=== PATIENT | female | born 1965 | race Caucasian/White ===

== ENCOUNTER 2022-08-17 09:20 | Day surgery (SDC) | payer OTHER, SELFPAY ==
[2022-08-11 14:32] VITALS: BMI 22.8
--- NOTE | 2022-08-16 12:08 | HO.ANESPROP2 ---
Documented by User: Pari Torres NP 08/16/22 12:08 HPI - Anesthesia Eval Consult details Narrative: 56yo F for Colonoscopy PMFSH Active Problems Active Problems: All Active Problems (Updated 01/09/22 @ 09:14 by Antonio Aldrich MD) Nevus (Acute) Paronychia of great toe, left (Acute) Family History Family History Father Stomach cancer Paternal Aunt Colon cancer Mother Breast cancer Surgical History Surgical History (Updated 07/03/22 @ 13:14 by RENAE Dudley) H/O colonoscopy Social History Social History Alcohol intake: current Alcohol intake frequency: 0-2 drinks per day Alcohol type: beer and wine Patient Tobacco Use Status: Never used Tobacco Use of substances other than those prescribed or required for medical reasons: No Advance Directives: No Advance Directives Information Provided: Yes Meds Allergies Allergy/AdvReac Type Severity Reaction Status Date / Time No Known Allergies Allergy Verified 07/03/22 13:11 Exam Exam Date and Time: August 16, 2022 1208 Height,Weight and Vital Signs: Height 5 ft 4 in Weight 60.399 kg Assessment and Plan Assessment Anesthesia Assessment: Chart Reviewed Documented by User: Montse Callejas MD 08/17/22 10:37 PMFSH Past Medical History Functional capacity: independent ambulation Patient : No Family History Family History Father Stomach cancer Paternal Aunt Colon cancer Mother Breast cancer Family history of problems with anesthesia: No Surgical History Surgical History (Updated 07/03/22 @ 13:14 by RENAE Dudley) H/O colonoscopy History of Problems with Anesthesia: No Social History Social History Alcohol intake: current Alcohol intake frequency: 0-2 drinks per day Alcohol type: beer and wine Patient Tobacco Use Status: Never used Tobacco Use of substances other than those prescribed or required for medical reasons: No Advance Directives: No Advance Directives Information Provided: Yes Meds Allergies Allergy/AdvReac Type Severity Reaction Status Date / Time No Known Allergies Allergy Verified 07/03/22 13:11 Exam Airway Mallampati Class: II TM Dist: >3cm Neck ROM: Full Heart: RRR Assessment and Plan Final Anesthetic Review Family History of Problems with Anesthesia: No History of Problems with Anesthesia: No ASA Class: II Final Preanesthetic Review: No Changes in Pt Med Stat, Meds/Allgs Chart Reviewed, Consent Obtained/Reviewed and Anes Risks/Benef Reviewed Patient Risk: Low Procedure Risk: Low Anesthetic Plan Anesthetic Plan: MAC: Disposition: Standard PACU
[2022-08-17 09:34] VITALS: BP 115/76; PULSE 72; RESP 16; TEMP 36.3; O2SAT 100; BMI 21.9
[2022-08-17] MEDS: Lactated Ringers 1,000 ML 100 ML IVCONT (09:46)
--- NOTE | 2022-08-17 10:45 | MHC.SHP ---
Pre-Procedural Eval Section A Date of Service: 08/17/22 Section B Chief Complaint: screening Details of Present Illness: 56 y.o F here for screening colonoscopy with F.hx of stomach ca in father Relevant Family History (Specify if Yes): Yes Present Medications: see Short Stay Collaborative assessment Medical History: No relevant PMH History of Previous Operations: No relevant previous surgery Allergies: Allergies Allergy/AdvReac Type Severity Reaction Status Date / Time No Known Allergies Allergy Verified 07/03/22 13:11 Review of Systems Review of Systems Comment: 10 point ROS negative Exam Exam Comment: Gen appear: No acute distress, well nourished HEENT: no icterus Chest: No overt resp distress Abd: soft, nontender, nondistended Psych: Stable affect, answering questions appropriately Neuro: A/Ox3 noted to move all extremities spontaneously Ext: no peripheral edema Plan Diagnosis/Plan: Unchanged I have reviewed the history and physical and performed a pertinent physical examination on my patient. No changes have occurred unless specified.
--- NOTE | 2022-08-17 10:47 | P.OP_ITS ---
Operative Note Operative Note Date of Service: 08/17/22 Narrative: Procedure: Colonoscopy Indication: Screening Endoscopist: Bere Wallace MD Anesthesia Provider: Dr Montse Pop Anesthesia type: MAC Instrument: Olympus [id number]-H190L Consent: Indication, risks vs benefits, and alternatives were discussed with the patient who gave written informed consent to proceed. EKG, pulse, pulse oximetry and blood pressure were monitored throughout the procedure. Please see anesthesia flowsheet. Procedure: The patient was brought to the procedure room and placed in the left lateral decubitus position. IV medications were administered by the anesthesia provider in attendance. A digital rectal exam was performed which was normal. The colonoscope was then inserted through the anus and advanced through the colon to the cecum at 75 cm,and terminal ileum. Mucosa was carefully examined under high definition white light as the instrument was slowly withdrawn in a retrograde panoramic fashion. Retroflexion was performed in ascending colon and rectum. The procedure was not difficult. There were no immediate obvious complications. The quality of the prep was BBPS: 3+3+3 = excellent Withdrawal time 11 minutes. Limitations: No limitations. Findings: Mucosa: Normal to cecum and terminal ileum. Protruding lesions: * 3 sessile pearlescent appearing polyps of size 3-7 mm in sigmoid colon. Cold snare polypectomy was performed. The polyps were completely removed and retrieved. * Large internal hemorrhoids [without] stigmata of recent bleeding. Impression: 1. Normal colon and terminal ileum mucosa 2. Total of 3 polyps removed from sigmoid colon. 3. Internal hemorrhoids Recommendations: - Follow path results. - Repeat colonoscopy in 3-5 years if all three polyps are adenomas, otherwise 7- 10 years.
[2022-08-17 11:26] VITALS: BP 103/62; PULSE 88; RESP 18; TEMP 36.5; O2SAT 99
[2022-08-17 11:41] VITALS: BP 103/62; PULSE 66; RESP 18; TEMP 36.4; O2SAT 100
== END 2022-08-17 12:07 | disposition home or self-care (01) ==
PROVIDERS: PCP Internal Medicine; Visit Provider Internal Medicine
PROC: 0DJD8ZZ Inspection of Lower Intestinal Tract, Via Natural or Artificial Opening Endoscopic (ICD-10-PCS; CPT 45378; principal; 2022-08-17 10:40)
DX: Z12.11 Encounter for screening for malignant neoplasm of colon (principal); K63.5 Polyp of colon; K64.8 Other hemorrhoids; Z80.0 Family history of malignant neoplasm of digestive organs
CPT/HCPCS: 45385; 88305

== ENCOUNTER → 2022-09-01 10:16 | Outpatient (BNVA) | payer OTHER, SELFPAY | PROVIDERS: PCP Internal Medicine; Visit Provider Nurse Practitioner Family | DX: Z98.890 Other specified postprocedural states (principal) ==

== ENCOUNTER 2023-12-22 09:30 | Outpatient (AMB) | payer OTHER, SELFPAY ==
[2023-12-22 10:30] VITALS: BP 112/60; PULSE 72; TEMP 36.7; O2SAT 96; BMI 22.0
--- NOTE | 2023-12-22 10:30 | AM.OFFWIN_ITS ---
Intake Vital Signs 3 12/22/23 10:30 Height 5 ft 4 in Weight 128 lb BMI 22.0 BP 112/60 Blood Pressure Location Lt brachial Position Sitting Pulse 72 Pulse Source Pulse Oximeter Temp 98.1 F Temp Source Oral Pulse Oximetry (%) 96 Oxygen Delivery Method Room Air Intake Visit Reasons: EP Sty lft eye Intake Note: Pt is here today c/o left eye sty Patient Tobacco Use Status: Never used Tobacco Allergies No Known Allergies Allergy (Verified 12/22/23 10:30) HPI EP Sty lft eye 2 HPI0 Details Patient is a 58-year-old female comes to the walk-in clinic complaining of a few days of a stye in her left eye, which her sister diagnosed for her. She reports that this is a 1st time occurrence for her, but she was instructed to use warm compresses to the area a few times a day, which she has been doing. She reports that it has not gotten worse, but it is not seem to improve either. No report of vision change, discharge, pain or irritation, associated respiratory symptoms, or other significant associated symptoms. [facility] Surgical History H/O colonoscopy Family History Father Stomach cancer Paternal Aunt Colon cancer Mother Breast cancer Social History Alcohol intake: current Alcohol intake frequency: 0-2 drinks per day Alcohol type: beer and wine Patient Tobacco Use Status: Never used Tobacco Review of Systems Const All systems reviewed & are unremarkable except as noted in HPI and below Physical Exam Vital Signs: Last Vital Signs Temp 98.1 F 12/22/23 10:30 Pulse 72 12/22/23 10:30 BP 112/60 12/22/23 10:30 Pulse Ox 96 12/22/23 10:30 Oxygen Delivery Method Room Air 12/22/23 10:30 BMI result Body Mass Index 22.0 Eyes Eyes/upper lids images: 2 1. Small stye, no visible itis. Sclerae are white, no injection or conjunctivitis noted. No discharge or pustulant. EOM intact Assessment & Plan Assessment & Plan (1) Stye: Code(s): H00.019 - Hordeolum externum unspecified eye, unspecified eyelid Qualifiers: Eyelid: upper Laterality: left Qualified Code(s): H00.014 - Hordeolum externum left upper eyelid Plan: Patient with very small stye to her left lower eyelid. She is already started with warm wet compress soaks, and I advised continuing this. I also will write her for antibiotic eyedrops as she is going on a trip soon and will have limited access to healthcare. She should return if it worsens or persists and this becomes more of a hordeolum issue. Medications: New 2 polymyxin B sulf-trimethoprim 10,000 unit- 1 mg/mL while awake; do not exceed 6 doses in 24 hours 1 drp ophthalmic (eye) QID 10 mL 0RF 5 days Coding Level of Care Code Est Pt Level 4 (46229) Diagnoses Hordeolum externum of left upper eyelid H00.014 Eyelid: upper Laterality: left
== END 2023-12-22 11:45 | disposition home or self-care (01) ==
PROVIDERS: PCP Internal Medicine; Visit Provider Physician Assistant Medical
DX: H00.014 Hordeolum externum left upper eyelid (principal)
CPT/HCPCS: 99051; 99214